=== PATIENT | female | born 1985 | race Hispanic/Latino ===

== ENCOUNTER 2020-10-30 08:47 | Emergency (ER) | payer OTHER ==
[~2020-10-30] VITALS: Ht 157.5 cm; Wt 134.0 kg
[2020-10-30] MEDS ORDERED: ALBUTEROL SUL0.083 % IN (09:12)
[2020-10-30 09:53] LABS: URINE BILIRUBIN - DIPSTICK NEGATIVE (NEGATIVE); URINE BLOOD DIPSTICK NEGATIVE (NEGATIVE); URINE COLOR YELLOW; URINE GLUCOSE - DIPSTICK NEGATIVE (NEGATIVE); URINE KETONE NEGATIVE (NEGATIVE); URINE LEUK ESTERASE NEGATIVE (NEGATIVE); URINE PH 5.5 (4.5-8.0); URINE PROTEIN - DIPSTICK NEGATIVE (NEG-TRACE); URINE SPECIFIC GRAVITY >=1.030; URINE UROBILINOGEN - DIPSTICK 0.2 E.U./dL (0.2)
[2020-10-30 09:54] LABS: URINE NITRITE - DIPSTICK NEGATIVE (Negative)
[2020-10-30] MEDS ORDERED: FLEXERIL5 M1 PO (11:14)
[2020-10-30] MEDS ORDERED: ULTRAM50 MG PO (11:14)
[2020-10-30] MEDS ORDERED: IBUPROFEN600 MG PO (11:14)
[2020-10-30 12:41] VITALS: BP 149/89
[2020-10-31] MEDS ORDERED: HYDROCO/APAP1 TA9 PO (18:52)
== END 2020-10-30 12:41 | disposition home or self-care (01) | DRG 563 ==
LOC: ED 08:47
DX: S39.012A Strain of muscle, fascia and tendon of lower back, initial encounter (principal); X50.1XXA Overexertion from prolonged static or awkward postures, initial encounter; Y93.I9 Activity, other involving external motion

== ENCOUNTER 2020-10-31 16:29 | Emergency (ER) | payer OTHER ==
[~2020-10-31] VITALS: Ht 157.5 cm; Wt 230.0 kg
[~2020-10-31 16:29] MED LIST: ALBUTEROL SUL0.083 % IN; FLEXERIL5 M1 PO; IBUPROFEN600 MG PO; ULTRAM50 MG PO
[2020-10-31] MEDS ORDERED: HYDROCO/APAP1 TA9 PO (18:52)
[2020-10-31 19:00] VITALS: BP 118/65
== END 2020-10-31 19:05 | disposition home or self-care (01) | DRG 563 ==
LOC: ED 16:29
DX: S39.012A Strain of muscle, fascia and tendon of lower back, initial encounter (principal); X50.1XXA Overexertion from prolonged static or awkward postures, initial encounter; Y93.I9 Activity, other involving external motion

== ENCOUNTER 2022-12-25 13:32 | Emergency (ER) | payer OTHER ==
[2022-12-25] VITALS (12 sets, daily range): BP systolic 104–140; BP diastolic 62–115
[~2022-12-25] VITALS: Ht 157.5 cm; Wt 114.0 kg
[~2022-12-25 13:32] MED LIST changes: +HYDROCO/APAP1 TA9 PO
[2022-12-25 14:28] LABS: BASO% 0.7 % (0-3); EOS% 2.8 % (0-8); HEMATOCRIT 43.2 % (37.0-47.0); HEMOGLOBIN 13.7 g/dl (12.0-16.0); IMMATURE GRANULOCYTES 0.1 % (0.0-5.0); MEAN CELL VOLUME 90.9 fL CALC (80.0-100.0); MEAN CORPUSCULAR HGB 28.8 pG CALC (26.0-32.0); MEAN CORPUSCULAR HGB CONC 31.7 g/dL CAL (32.0-36.0); MONO% 5.1 % (2-13); NEUT# 4.98 thou/uL (2.00-7.15); NEUT% 65.3 % (42-76); RED BLOOD COUNT 4.75 mill/uL (4.20-5.60); RED CELL DISTRI WIDTH 12.6 % (11.5-15.5)
[2022-12-25 14:43] LABS: URINE BILIRUBIN - DIPSTICK NEGATIVE (NEGATIVE); URINE BLOOD DIPSTICK LARGE (NEGATIVE); URINE COLOR YELLOW; URINE GLUCOSE - DIPSTICK NEGATIVE (NEGATIVE); URINE KETONE TRACE mg/dL (NEGATIVE); URINE LEUK ESTERASE NEGATIVE (NEGATIVE); URINE PROTEIN - DIPSTICK NEGATIVE (NEG-TRACE); URINE SPECIFIC GRAVITY >=1.030; URINE UROBILINOGEN - DIPSTICK 0.2 E.U./dL (0.2)
[2022-12-25 14:45] LABS: URINE NITRITE - DIPSTICK NEGATIVE (Negative)
[2022-12-25 14:46] LABS: ALBUMIN 4.1 g/dL (3.2-5.0); ALKALINE PHOSPHATASE 90 u/l (38-126); ANION GAP 12 (6-22 (CALC)); BILIRUBIN, TOTAL 0.2 mg/dL (0.02-1.3); BUN 14 mg/dL (7-17); BUN/CREATININE RATIO 23 (12-20 (CALC)); CARBON DIOXIDE 22 mmol/l (22-30); CHLORIDE 110 mmol/l (95-108); CREATININE 0.6 mg/dL (0.5-1.0); GFR FOR AFR.AMER. > 60 ML/MIN (>=60 (CALC)); GFR OTHER RACES > 60 ML/MIN (>=60 (CALC)); SGOT/AST 30 u/l (14-36); SODIUM 140 mmol/l (137-146); TOTAL PROTEIN 7.4 g/dL (6.3-8.2)
[2022-12-25 14:51] LABS: URINE RBC 0-2 RBC/hpf (0-5)
[2022-12-25 15:03] LABS: BETA-HCG, QUANT(RESULT NUMBER) <2 mIU/mL
[2022-12-25] MEDS ORDERED: NAPROXEN500 MG PO (16:57)
== END 2022-12-25 17:26 | disposition home or self-care (01) | DRG 552 ==
LOC: ED 13:32
PROVIDERS: Nurse Practitioner
DX: M54.50 Low back pain, unspecified (principal); N93.9 Abnormal uterine and vaginal bleeding, unspecified